=== PATIENT | female | born 1980 | race African-American/Black ===

== ENCOUNTER 2018-01-30 11:33 | Emergency (ER) | payer BC, MEDICAID ==
[~2018-01-30] VITALS: Ht 175.3 cm; Wt 99.0 kg
[~2018-01-30 11:33] MED LIST: ALBU17AE26
[2018-01-30 14:05] VITALS: BP 139/89
== END 2018-01-30 14:27 | disposition home or self-care (01) ==
LOC: ER 13:46
DX: J04.0 Acute laryngitis (principal); R11.10 Vomiting, unspecified; R03.0 Elevated blood-pressure reading, without diagnosis of hypertension; M32.9 Systemic lupus erythematosus, unspecified; M79.7 Fibromyalgia
CPT/HCPCS: 87070; 87430; 87804; 99284